=== PATIENT | male | born 1995 | race Hispanic/Latino ===

== ENCOUNTER 2019-03-05 01:17 | Observation (INO) | payer OTHER ==
[2019-03-05] MEDS ORDERED: hydrALAZINE 20 MG/ML VIAL SLOW IVP PRN (02:39)
[2019-03-05] MEDS ORDERED: Morphine 2 MG/ML SYRINGE SLOW IVP PRN (02:39)
[2019-03-05] MEDS ORDERED: Ondansetron PF 4 MG/2 ML Vial IVP PRN (02:39)
[2019-03-05] MEDS ORDERED: Promethazine HCl 25 MG/ML VIAL IM PRN (02:39)
[2019-03-05] MEDS ORDERED: Dextrose 5% in Water 1,000 ML IV PRN (02:39)
[2019-03-05] MEDS ORDERED: Dextrose 50% Abboject 50 ML SYRINGE SLOW IVP PRN (02:39)
[2019-03-05] MEDS ORDERED: Acetaminophen 1,000 MG in Premix Bag 1 BAG IVPB SCH (02:45)
[2019-03-05] MEDS ORDERED: Adacel (T-DAP) 0.5 ML SYRINGE ONE (03:07)
--- NOTE | 2019-03-05 03:45 | HP ---
TRAUMA SURGEON: Dr. Armstrong CONSULTING PHYSICIAN: Dr. Gaines. HISTORY OF PRESENT ILLNESS: The patient is a 23-year-old male who presented from an outside facility after sustaining a subdural hematoma. Earlier today, the patient was on a hike. He was running and subsequently lost his balance and fell down a randell about 8-9 feet. He did not lose any consciousness and he was ambulatory afterwards. His girlfriend noted significant abrasions to the left side of his body and patient reported a headache and so subsequently, he went to outside facility where he received a CT scan of his head, C and T-spine, which demonstrated right subdural hematoma and a questionable bilateral subarachnoid hematoma. GCS is 15. There are no focal neurological deficits. He denies nausea, vomiting, photophobia, phonophobia, difficulty concentrating and difficulty seeing. REVIEW OF SYSTEMS: All additional 10-point review of systems negative except as indicated above. PAST MEDICAL HISTORY: None. PAST SURGICAL HISTORY: None. SOCIAL HISTORY[place] drinks alcohol on the weekends and denies any drug use. MEDICATIONS: None. ALLERGIES: NO KNOWN DRUG ALLERGIES. OBJECTIVE: VITAL SIGNS: Temperature 98.1, pulse 83, respirations 17, oxygen saturation 99% on room air, blood pressure 130/60. PRIMARY SURVEY: Airway intact. Adequate breath sounds bilaterally. Distal pulses palpable in the bilateral radials, femorals, and DPs. GCS is 15. Gross motor and sensation is intact. No lacerations, significant abrasions to the left forehead, left forearm, left-sided back, left flank, left thigh and left knee. Bleeding is controlled. SECONDARY SURVEY: HEAD: Normocephalic, atraumatic. No gross palpable skull deformities or tenderness. Abrasion to the left forehead. EYES: Pupils 3 to 2, equal, round, and reactive bilaterally. ENT: No hemotympanum, no epistaxis, no septal hematoma. Midface stable to manipulation. No blood in the oropharynx. Dentition is intact. No anterior neck injury/crepitus/tenderness. C-SPINE: No step-offs or deformities. Nontender. C-collar in place. CHEST: Nontender. No crepitus. No abrasions or ecchymosis noted. ABDOMEN: Soft, nontender, nondistended. Abrasion to the left flank. PELVIS: Stable to palpation, nontender, no abrasions or ecchymosis noted. RECTAL: Deferred. GENITOURINARY: Deferred. EXTREMITIES: Abrasion to the left thigh and left knee, abrasion to the left forearm. No other gross deformities. No ecchymosis noted. 2+ pulses in the bilateral radials, femorals, and DPs. BACK/SPINE: No step-offs or deformities to the anterior L-spine. Positive upper T-spine tenderness, extensive abrasions to the left side of the back. No ecchymosis noted. NEUROLOGIC: GCS is 15, 5/5 strength in the bilateral division chair, plantar flexion and dorsiflexion. Gross normal sensation x4 extremities. LABORATORY FINDINGS: White count 12.1, hemoglobin 15.7, hematocrit 46.2, platelets 237. Sodium 140, potassium 3.6, chloride 97, carbon dioxide 26, BUN 10, creatinine 0.9, glucose 112. DIAGNOSTIC FINDINGS: Diagnostic findings completed at the outside hospital included CT of the head, C-spine, and T-spine, which demonstrates a right subdural hematoma and questionable bilateral subarachnoid hemorrhages. ASSESSMENT: 1. Status post mechanical fall from 8 - 12 feet. 2. Right-sided subdural hematoma with questionable bilateral subarachnoid hemorrhages. 3. Concussive symptoms, headache. 4. Acute traumatic pain. PLAN: The patient will be admitted to the surgical floor with q.2 hours neuro checks. He will receive a CT scan later in the morning at about 5:00 a.m. We will complete q.2 hours neuro checks. We will control blood pressure with a goal systolic less than 170. We will keep the head of the bed raised at 30 degrees. Tetanus shot will be updated in the emergency department. He will work with Physical Therapy tomorrow. Neurosurgery has been consulted. Dr. Gaines to see the patient in the morning. He will be n.p.o. with normal saline at 120 an hour. Follow up x-ray of left elbow. The patient was discussed with Dr. Armstrong before this dictation. Job ID: [id number]
[2019-03-05 04:27] VITALS: BMI 27.3
[2019-03-05] MEDS: Sodium Chloride 0.9% 1,000 ML IV SCH ×2 (06:00→11:29)
--- NOTE | 2019-03-05 07:59 | RAD ---
EXAM: 4 views of the left elbow HISTORY: Elbow pain COMPARISON: None FINDINGS: No elbow effusion is seen. There is no evidence of acute fracture or dislocation. No signi ficant degenerative changes are seen. No soft tissue swelling is present. IMPRESSION: No evidence of acute osseous abnormality.
--- NOTE | 2019-03-05 08:18 | CT ---
EXAM: CT brain without contrast HISTORY: Head trauma with possible intracranial hemorrhage seen at outside institution. COMPARISON: None TECHNIQUE: Multiple contiguous axial images were obtained and a CT of the brain without contrast. FINDINGS: The brain is normal in morphology and attenuation without focal lesions or confluent areas of infarction. There is no evidence of hydrocephalus, intracranial hemorrhage, or extra-axial fluid collection. There is soft tissue swelling of the scalp near the vertex. The calvarium is unremarkable. The visual ized paranasal sinuses and mastoid air cells are well aerated. IMPRESSION: No evidence of acute intracranial abnormality
[2019-03-05] MEDS ORDERED: Silver Sulfadiazine 1% Cream 50 GM JAR TOP SCH (09:00)
[2019-03-05] MEDS ORDERED: Bacitracin Zinc 1 Packet TOP SCH (09:00)
[2019-03-05] MEDS ORDERED: Famotidine/PF 20 mg/2ml Vial SLOW IVP SCH (09:00)
--- NOTE | 2019-03-05 09:35 | PRG ---
DATE OF SERVICE: 03/05/2019 I personally interviewed and examined the patient, reviewed documentation of Annie Anna PA-C, dated 03/05/2019. 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 He is on a hike yesterday, off his balance and fell down a randell. There is no loss of consciousness. An outside facility performed CT imaging of the head and demonstrated a small right subdural hematoma and possible traumatic subarachnoid blood. He has been neurologically intact overnight and I saw him in his hospital room this morning. He complains of headache and elbow pain. He tells me there are some abrasions on his elbow. Have been stable. His blood pressure is now 139/75 and his heart rate 74. Previous blood pressure was 116. Juan is awake. He is alert and answers questions appropriately. His cranial nerves are intact. There is no lateralizing motor or sensory deficits and alternating rapid motions are performed rapidly and smoothly. I am awaiting access to the outside CT scan and a followup CT scan here. My plan for Mr. Juan fallon is to compare his 2 CT scans, so long as there is not any increased hyperdensity on the subsequent scan, he can be discharged when he is safe for his activities of daily living. I will need to see him in clinic followup in 2 weeks with a final scan to ensure all blood products have resolved. Between now and followup, he should avoid heavy strenuous activity. I do not want him doing PT with his [employer] Unit at [place] until after we see him in followup. He can do light duty work until then. Our office will contact him with his followup arrangements and all of this is pending review of the first and the second CT scan. Job ID: [id number] [facility]
[2019-03-05] MEDS: Acetaminophen 500 MG TAB PO PRN ×2 (11:50→17:47)
[2019-03-05] MEDS: Cyclobenzaprine 10 MG TAB PO PRN ×2 (11:50→17:48)
--- NOTE | 2019-03-05 13:57 | CON ---
DATE OF CONSULTATION: HISTORY OF PRESENT ILLNESS: Mr. Martinez is a 23-year-old male, who was transferred to our emergency department for observation. He was running yesterday evening on a steep incline, tripped and fell down the hill. He struck his head, sustaining a laceration and some abrasions on his head and knees during this fall. At an outside facility, a CT of his head was done showing a right-sided subdural hemorrhage measuring approximately 3 mm at the largest. Neurosurgery was consulted. The patient is alert and oriented x3. He has normal range of motion in upper and lower extremities. There is normal coordination, normal concentration and memory. No focal motor deficits. Cranial nerves are intact. REVIEW OF SYSTEMS: A 10-point review of systems has been completed and is negative other than stated in the above HPI. ALLERGIES: NO KNOWN DRUG ALLERGIES. MEDICATIONS: Motrin. PAST MEDICAL HISTORY: The patient denies past medical history. PAST SURGICAL HISTORY: The patient denies surgical history. SOCIAL HISTORY: He does not smoke marijuana, has snuffed on occasion, and drinks alcohol socially. He does not use any illicit drugs. The patient lives in an apartment with his significant other. 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 PHYSICAL EXAMINATION: VITAL SIGNS: Temperature 97.8, pulse 74, respirations 16, O2 saturations 97% on room air, and blood pressure 139/75. CONSTITUTIONAL: The patient is alert and oriented x3. He is afebrile, appears nontoxic. He is not appeared to be in any visible distress. HEENT. Head is normocephalic. There is an abrasion to the left forehead. Pupils are equal, round, and reactive to light. Extraocular movements are intact. Hearing is intact. Moist mucous membranes. NECK: No deformities. No tenderness. Range of motion normal. RESPIRATIONS: Normal work of breathing on room air. EXTREMITIES: There is abrasion on the left thigh and knee and the left forearm. He has normal range of motion, 2+ pulses bilaterally, and normal strength in deltoids, biceps, triceps, fish fryer strength, hip flexion, knee flexion, dorsiflexion, and plantar flexion. NEUROLOGIC: The patient is alert, and oriented x3. GCS is 15. There are no sensory deficits bilaterally. Coordination is normal. Speech is spontaneous and fluent. No pronator drift. [id number] is smooth and symmetrical bilaterally, and [id number] normal bilaterally. No short or long-term memory deficits. Cranial nerves 2 through 12 are tested and intact. IMAGING: There is a report that states CT of the head, right tentorial subdural hematoma measuring approximately 3 mm at its thickest. There is a possible bilateral temporal parenchymal or subarachnoid hemorrhage versus artifact. ASSESSMENT AND PLAN: Mr. Martinez is a 23-year-old male, who tripped and fell while running last evening. He sustained a subdural hemorrhage. He is neurologically intact and following commands. GCS is 15. There are no sensory or motor deficits noted. He has been since the night in the hospital, being monitored with regular neuro checks with no deterioration overnight. He is pending a repeat of the CT scan of his brain to assess for any changes. If the CT shows stability of the hemorrhage, then the patient should be able to be discharged once he is safe for daily activities, and follow up in our office in 2 to [address] weeks with a followup CT. Job ID: [id number]
[2019-03-05 16:08] VITALS: BP 129/79; TEMP 98.7
[2019-03-05] MEDS ORDERED: traMADol HCl 50 MG TAB PO PRN (17:19)
--- NOTE | 2019-03-05 19:12 | DIS ---
DATE OF ADMISSION: 03/05/2019 DATE OF DISCHARGE: 03/05/2019 ADMISSION DIAGNOSES: Fall from 8 feet, right subdural hematoma, and scattered abrasions to left back, left upper extremity, and left flank and left lower extremity. DISCHARGE DIAGNOSES: Fall from 8 feet, right subdural hematoma, and scattered abrasions to left back, left upper extremity, and left flank and left lower extremity. CONSULTING PHYSICIAN: Dr. Gaines. PROCEDURES: None. HOSPITAL COURSE: The patient is a 23-year-old male, who presents to the emergency department after a transfer from outside facility. The patient earlier had been hiking and subsequently fell off a randell about 8 to 9 feet. He denied a loss of consciousness. He went to the emergency department at an outside facility, received a CT scan of the head, C- and T-spine, which demonstrated right-sided subdural hematoma as the patient also had significant left-sided abrasions. He was admitted to the Trauma Surgery team under observation. Dr. Gaines was consulted. A repeat head CT was completed later that morning, which demonstrated a stable CT scan. The patient was completely neurologically intact and GCS 15 the entire time. He was able to ambulate without difficulty. Pain was well controlled. He was tolerating a regular diet, and he was voiding without difficulty at the time of discharge. Tertiary exam was completed before discharge, revealing no new injuries. DISCHARGE DISPOSITION: Home. DISCHARGE CONDITION: Satisfactory. PHYSICAL EXAMINATION: VITAL SIGNS: Temperature 98.7, pulse 75, respirations 16, oxygen saturation 98% on room air, blood pressure 129/79. GENERAL: Well-appearing male sitting up in bed with no signs of acute distress. Ambulating without difficulty during the exam. CARDIAC: Regular rate and rhythm. No murmurs, gallops, or rubs. GASTROINTESTINAL: Soft, nontender, nondistended. CHEST: Equal chest rise and fall. Clear breath sounds bilaterally. No signs of acute injuries. EXTREMITIES: Bilateral upper and lower extremities with no new signs of trauma. Previously described abrasions to left forearm and left thigh are clean, dry, and intact with no signs of any infection. BACK/SPINE: No step-offs, deformities, or tenderness to the T- or L-spine. Previously noted abrasions on his left back are clean, dry, and intact. NEURO: GCS is 15. No focal neurological deficits. Gross motor and sensation are intact. DISCHARGE INSTRUCTIONS: The patient was discharged home with light duty work. He is a member of the , and he was told by Dr. Gaines to not participate in PT until he follows up in clinic. He can have regular diet with no restrictions. No physical therapy is recommended. DISCHARGE MEDICATIONS: Include, 1. Tylenol. 2. Tramadol. FOLLOWUP APPOINTMENTS: He is to follow up with Dr. Gaines in 2 weeks with a repeat head CT. This is merely a summary of the patient's hospitalization. For full details, please see his medical record in its entirety. Job ID: [id number]
== END 2019-03-05 18:06 | disposition home or self-care (01) ==
LOC: ERS 01:17 → SURG A 04:03
PROVIDERS: ADMIT Specialist; ATTEND Specialist
DX: S06.5X0A Traumatic subdural hemorrhage without loss of consciousness, initial encounter (principal); S20.412A Abrasion of left back wall of thorax, initial encounter; S30.810A Abrasion of lower back and pelvis, initial encounter; S50.812A Abrasion of left forearm, initial encounter; S80.212A Abrasion, left knee, initial encounter; G89.11 Acute pain due to trauma; W15.XXXA Fall from cliff, initial encounter; Y93.01 Activity, walking, marching and hiking
CPT/HCPCS: 70450; 90471; 90715; 96361; 96365; 96375; G0378; G0390; J0131; J2270; S0028